=== PATIENT | male | born 1990 | race Two or more races ===

== ENCOUNTER → 2024-12-13 | Outpatient (BNVA) | payer OTHER, SELFPAY | END | disposition home or self-care (01) | PROVIDERS: PCP Physician Assistant; Referring Provider Physician Assistant; Visit Provider Urology | DX: Z30.2 Encounter for sterilization (principal); N40.0 Benign prostatic hyperplasia without lower urinary tract symptoms; E66.9 Obesity, unspecified; Z68.29 Body mass index [BMI] 29.0-29.9, adult | CPT/HCPCS: 81003; 99212; G0463 ==

== ENCOUNTER 2025-01-02 06:20 | Day surgery (SDC) | payer BC, SELFPAY ==
[2025-01-02] VITALS (7 sets, daily range): BP systolic 120–168; BP diastolic 74–99; PULSE 70–90; RESP 12–22; TEMP 36.6–36.9; O2SAT 95–98; BMI 29.2
--- NOTE | 2025-01-02 09:18 | SUR.PHASEI ---
pt received from OR in recovery bay 7. pt asleep but responds to voice, breathing unlabored on room air. v/s stable. pt dressing to scrotum cdi. report received from Kalyan PUGH and Dr. Kennedy.
--- NOTE | 2025-01-02 09:18 | PD.SUROPNT ---
Date of Procedure 01/02/25 Pre Op Diagnosis Elective sterilization Post Op Diagnosis Same Procedure Bilateral vasectomy Findings Bilateral vas no pathology Procedure Description Indication for procedure this is a 34-year-old gentleman he is with 2 children desired bilateral vasectomy procedure and complications were discussed with patient in great detail informed consent is obtained he understood very well there is no warranty for permanent sterilization literature regarding bilateral vasectomy was provided to the patient Procedure patient was brought to the operating room in a satisfactory condition after appropriate premedication was put on the operating table in a supine position general anesthesia was given uneventfully parts were prepped and draped in a usual sterile fashion. Next the right vas deferens was palpated between 2 fingers and a thumb 2% lidocaine with quarter percent Marcaine was instilled appropriately vertical skin incision was made proper hemostasis was secured. Next the vas deferens was brought into the incision it was from its various fascial coverings between 2 silver clips centimeter of the vas deferens was excised. The lumen of the vas deferens was diathermized with coagulation diathermy distal end of the vas deferens was buried between various fascial layers. Skin was approximated with 3-0 chromic. Similar procedure was repeated on the opposite side. Next this sterile dressings were applied. Pressure bandage was given Patient having tolerated the procedure well and was sent to recovery room in a satisfactory condition to be discharged home with full postoperative instructions were verbally as well as in writing to be followed in urology office in 6 weeks' time. Pathology / specimen None Estimated Blood Loss 0.2 Condition Stable Disposition PACU Surgeon Sarah Sal MD Surgical Staff Operation Date: 01/02/25 08:30 Case Staff Anesthesiologist: Hood Kennedy
--- NOTE | 2025-01-02 09:34 | SUR.PHASEI ---
pt able to tolerate oral fluids without difficulty swallowing or nausea/vomiting.
--- NOTE | 2025-01-02 10:10 | SUR.PHASEII ---
pt awake and alert, breathing unlabored on room air. v/s stable. pt dressing to scrotum cdi. pt able to ambulate to wheelchair wiht steady gait. d/c instructions given with Olamide in room, all questions answered. pt d/c via wheelchair with all belongings.
== END 2025-01-02 10:10 | disposition home or self-care (01) ==
PROVIDERS: PCP Physician Assistant; Referring Provider Urology; Visit Provider Urology
PROC: (CPT 55250; principal; 2025-01-02 08:30)
DX: Z30.2 Encounter for sterilization (principal)
CPT/HCPCS: 55250; A4217; A4649; J1100; J2371; J2405; J2704; J3010; J3490; A9270; J0665

== ENCOUNTER → 2025-05-20 | Outpatient (BNVA) | payer BC, SELFPAY | END | disposition home or self-care (01) | PROVIDERS: PCP Physician Assistant; Referring Provider Physician Assistant; Visit Provider Urology | DX: N40.0 Benign prostatic hyperplasia without lower urinary tract symptoms (principal); Z98.52 Vasectomy status; E66.9 Obesity, unspecified; Z68.28 Body mass index [BMI] 28.0-28.9, adult | CPT/HCPCS: 81003; 99213; G0463 ==

== ENCOUNTER → 2025-05-21 | Outpatient (CLI) | payer BC, SELFPAY ==
[2025-05-21 08:31] LABS: Post Vasectomy Sperm Presence No Spermatozoa Seen (No Sperm)
== END | disposition home or self-care (01) ==
LOC: SLDO 07:25
PROVIDERS: Referring Provider Urology; Visit Provider Urology
DX: Z30.8 Encounter for other contraceptive management (principal)
CPT/HCPCS: 89321

== ENCOUNTER → 2025-10-28 | Outpatient (CLI) | payer BC, SELFPAY ==
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
== END | disposition home or self-care (01) ==
LOC: CDIM 15:17
PROVIDERS: Referring Provider Chiropractor; Visit Provider Chiropractor
DX: M50.321 Other cervical disc degeneration at C4-C5 level (principal)
CPT/HCPCS: 72040

== ENCOUNTER → 2025-11-19 | Outpatient (CLI) | payer BC, SELFPAY ==
[2025-11-19 08:02] LABS: Collection Type, Urine Clean Catch
[2025-11-19 08:36] LABS: Bilirubin,Urine Negative (Negative); Blood,Urine Negative (Negative); Clarity,Urine Clear (Clear/Hazy); Color,Urine Yellow (Lt Yel-Yel); Culture Indicated,Urine Not Indicated; Glucose, Urine Negative (Negative); Ketones,Urine Negative (Negative); Leukocyte Esterase,Urine Negative (Negative); Nitrite,Urine Negative (Negative); PH,Urine 6.5 (5.0-7.0); Protein,Urine Trace (Neg - Trace); RBC,Urine 1 /hpf (0-3); Specific Gravity,Urine 1.029 (1.001-1.035); Squamous Epithelial Cell,Urine < 1 /hpf (0-5); Urobilinogen,Urine Negative mg/dL (0.0-1.0); WBC,Urine 1 /hpf (0-5)
[2025-11-19 08:39] LABS: Basophils # (Auto) 0.0 Thou/mm3 (0.0-0.2); Basophils % (Auto) 1 % (0-2.5); Eosinophils # (Auto) 0.4 Thou/mm3 (0.0-0.5); Eosinophils % (Auto) 9 % (0-10); Glucose Estimated Average 103 mg/dL (80-131); Hematocrit 49.1 % (41.0-53.0); Hemoglobin 16.6 g/dL (13.5-16.0); Hemoglobin A1C 5.2 % Hgb (4.8-6.0); Immature Granulocytes Auto 0.03 Thou/mm3 (0.00-0.00); Lymphocytes # (Auto) 1.6 Thou/mm3 (1.0-4.8); Lymphocytes % (Auto) 31 % (10-50); Mean Corpuscular HGB Conc 33.8 g/dl (31.0-37.0); Mean Corpuscular Hemoglobin 30.9 pg (25.0-35.0); Mean Corpuscular Volume 91 fL (80-100); Monocytes # (Auto) 0.3 Thou/mm3 (0.0-0.8); Monocytes % (Auto) 6 % (0-12); Neutrophils # (Auto) 2.7 Thou/mm3 (1.8-7.7); Neutrophils % (Auto) 54 % (37-80); Nucleated Red Blood Cell # 0.00 Thou/mm3 (0.00-0.00); Nucleated Red Blood Cell % 0 /100 WBC (0); Platelet Count 324 Thou/mm3 (140-440); RDW Standard Deviation 43.8 fL (35.1-43.9); Red Blood Count 5.37 Miln/mm3 (4.50-5.90); White Blood Count 5.1 Thou/mm3 (3.8-10.6)
[2025-11-19 08:51] LABS: Alanine Aminotransferase 83 U/L (10-49); Albumin, Serum 4.7 gm/dL (3.5-5.0); Albumin/Globulin Ratio 1.5 (1.2-2.2); Alkaline Phosphatase 71 U/L (46-116); Anion Gap 8 (7-16); Aspartate Amino Transferase 51 U/L (0-34); BUN/Creatinine Ratio 9 Ratio (12-20); Bilirubin,Direct 0.4 mg/dL (0.0-0.3); Bilirubin,Total 1.3 mg/dL (0.3-1.2); Blood Urea Nitrogen 12 mg/dL (9-23); Calcium 9.6 mg/dL (8.3-10.6); Calcium (Corrected) 9.6 mg/dL (8.5-10.1); Carbon Dioxide 30.2 mMol/L (20.0-31.0); Chloride 104 mMol/L (98-107); Creatinine (Component) 1.4 mg/dL (0.6-1.3); Globulin 3.1 gm/dL (2.3-3.5); Glucose 92 mg/dL (74-106); Osmolality,Calculated 282 (275-295); Potassium 4.6 mMol/L (3.4-5.1); Sodium 142 mMol/L (136-145); Thyroid Stimulating Hormone 2.24 uIU/mL (0.55-4.78); Total Protein 7.8 gm/dL (5.7-8.2); eGFR > 60 See Note
[2025-11-19 08:55] LABS: Sed Rate (ESR) 4 mm/hr (0-15)
[2025-11-25 07:32] LABS: Sex Hormone Binding Globulin* 3 nmol/L (10-50); Testosterone, Free,Dialysis 39.4 pg/mL (35.0-155.0); Testosterone, Total, Dialysis 120 ng/dL (250-1100)
== END | disposition home or self-care (01) ==
LOC: COPL 07:02
PROVIDERS: PCP Family Medicine; Referring Provider Physician Assistant; Visit Provider Physician Assistant
DX: F41.9 Anxiety disorder, unspecified (principal)
CPT/HCPCS: 36415; 80053; 81001; 82248; 83036; 84270; 84402; 84403; 84443; 85025; 85652